=== PATIENT | male | born 1995 ===

== ENCOUNTER 2017-11-12 15:11 | Emergency (ER) | payer OTHER ==
[~2017-11-12] VITALS: Ht 180.3 cm; Wt 90.7 kg
[2017-11-12] MEDS ORDERED: MORPHINE 4 MG/ML SDV IVP ONE (15:20)
[2017-11-12] MEDS ORDERED: ONDANSETRON 4 MG/2 ML VIAL IVP ONE (15:20)
--- NOTE | 2017-11-12 15:26 | ER Report ---
History and Physical Time Seen By MD: 15:19 Hx. of Stated Complaint: PT HIT A TREE WHILE SNOWBOARDING TODAY. NO LOC. DENIES NECK OR BACK PAIN. HPI/ROS CHIEF COMPLAINT: r shoulder injury HISTORY OF PRESENT ILLNESS: [place] and the back of his snowboard clipped a small tree and the pt fell onto his r shoulder onto the ground. no helmet. did not hit his head. States wait of his body went onto his shoulder. + tingling down right arm to mid of his palm. pt has full range of motion of his hands. Pt denies neck pain. no chest or abd pain. no headaChe. Pt last ate at noon REVIEW OF SYSTEMS: Respiratory: No cough, no dyspnea. Cardiovascular: No chest pain, no palpitations. Gastrointestinal: No vomiting, no abdominal pain. Musculoskeletal: No back pain. + right shoulder pain Neuro: + numbness Allergies: Coded Allergies: No Known Drug Allergies (Unverified , 11/12/17) Home Meds No Active Prescriptions or Reported Meds Past Medical/Surgical History Pmhx: neg Pshx: knee surgery, TA Hx Smoking: No Hx Alcohol Use: Yes Constitutional Vital Sign - Last 24 Hours 11/12/17 15:16 Temp 99.6 Pulse 88 Resp 18 B/P (MAP) 149/105 Pulse Ox 94 Physical Exam General Appearance: The patient is alert, has no immediate need for airway protection and no signs of toxicity. Eyes: Pupils equal and round no pallor or injection, EOMI ENT: no pharyngeal erythema or exudates, Mucous membranes are moist, TM are nl b/l, neg hemotypmanums Respiratory: There are no retractions, lungs are clear to auscultation. Cardiovascular: Regular rate and rhythm. pulses are equal and symmetrical Gastrointestinal: Abdomen is soft and non tender, no masses, bowel sounds normal, no guarding, no rigidity or rebound Neurological: Cranial nerves II-XII grossly intact Skin: Warm and dry, no rashes. Musculoskeletal: Neck is supple non tender, no vertebral tenderness Extremities are nontender, nonswollen and have full range of motion with acception of right upper extremity which has equal grasps, pronation and supination is intact at the elbow; pt is unable to abduct right shoulder secondary to pain. + deformity at the glenoid fossa DIFFERENTIAL DIAGNOSIS: After history and physical exam differential diagnosis was considered for clavicle fx, humeral fx, dislocation Medical Decision Making EKG/Imaging Imaging + dislocation of r anterior shoulder Post reduction film is stable. ED Course/Re-evaluation Clinical Indication for ER IV: IV Access ED Course 11/12/2017 3:49:37 pm Pt with dislocated shoulder. PT would like to be "put out" before placing shoulder back in place. Pt signed consent. Will place on monitors. 11/12/2017 4:15:10 pm time out prior to procedure. Propofol 200mg given in total. Using traction counter traction r shoulder was placed back on first attempt. Pt placed in shoulder immobilizer. Repeat xray shows shoulder in good position. 11/12/2017 4:22:26 pm Pt feeling much better. REfused pain medication. Pt is going to see orthopedics closer to his home. Pts numbness has resolved with reduction of shoulder. Decision to Disposition Date: Nov 12, 2017 Decision to Disposition Time: 16:16 Depart Departure Latest Vital Signs Vital Signs Date Time Temp Pulse Resp B/P (MAP) Pulse Ox O2 Delivery O2 Flow Rate FiO2 11/12/17 15:16 99.6 88 18 149/105 94 Impression: Primary Impression: Dislocation, shoulder, anterior Condition: Improved Disposition: HOME OR SELF-CARE Referrals: [facility] 2 Days New Scripts No Active Prescriptions or Reported Meds Patient Instructions: Shoulder Dislocation (GEN) Additional Instructions: You dislocated your shoulder. We did reduce your shoulder and placed you in an immobilizer. Call Orthopedics tomorrow to arrange follow up for further evaluation of your shoulder for possible ligament injury. Motrin/tylenol as needed for pain. Problem Qualifiers Primary Impression: Dislocation, shoulder, anterior Encounter type: initial encounter Laterality: right Qualified Codes: S43.014A - Anterior dislocation of right humerus, initial encounter CINDI DICKERSON DO Nov 12, 2017 15:26
[2017-11-12] MEDS ORDERED: PROPOFOL EMUL 10MG/ML 20 ML VL IVP ONE (15:45)
[2017-11-12] MEDS ORDERED: NS(*) 0.9% 500 ML BAG 500 ML IV ONE (15:50)
--- NOTE | 2017-11-12 15:51 | RADIOLOGY IMAGING REPORT ---
FACILITY: [facility] [place] PATIENT NAME: Bridget Vega : 1995 MR: [id number] V: [id number] EXAM DATE: ORDERING PHYSICIAN: CINDI DICKERSON TECHNOLOGIST: Location: [facility] [place] Patient: Bridget Vega : 1995 Visit/Account:[id number] Date of Sevice: 11/12/2017 INDICATION: snowboarding accident. Evaluate for dislocation. Trauma. DATE: 11/12/2017 3:45 PM. TECHNIQUE: SHOULDER MIN 2 VIEWS RIGHT COMPARISON: None FINDINGS: The humeral head is dislocated anteroinferiorly. There is no conspicuous fracture. IMPRESSION: Anteroinferior dislocation of the humeral head. Report Dictated By: Brady Nugent MD at 11/12/2017 3:45 PM Report E-Signed By: Brady Nugent MD at 11/12/2017 3:47 PM [id number]:[email or web address]
[2017-11-12] MEDS ORDERED: PROPOFOL EMUL(*) 10MG/ML 20 ML 0 ML ONE (15:57)
[2017-11-12 16:10] VITALS: BP 111/97
[2017-11-12] MEDS ORDERED: NS(*) 0.9% 1000 ML BAG 1,000 ML IV ONE (16:25)
--- NOTE | 2017-11-12 16:53 | RADIOLOGY IMAGING REPORT ---
FACILITY: [facility] [place] PATIENT NAME: Bridget Vega : 1995 MR: [id number] V: [id number] EXAM DATE: ORDERING PHYSICIAN: CINDI DICKERSON TECHNOLOGIST: Location: [facility] [place] Patient: Bridget Vega : 1995 Visit/Account:[id number] Date of Sevice: 11/12/2017 EXAMINATION: Right shoulder 1 view. HISTORY: Post reduction COMPARISON: Prior study of earlier today FINDINGS: There has been reduction of the prior anterior right glenohumeral dislocation. Normal alignment on th is single postreduction film, without evidence of fracture. IMPRESSION: Normal alignment at the right glenohumeral joint following closed reduction of an anteri or right glenohumeral dislocation. Report Dictated By: Magan Luna MD at 11/12/2017 4:44 PM Report E-Signed By: Magan Luna MD at 11/12/2017 4:49 PM WSN:[id number]
== END 2017-11-12 16:30 | disposition home or self-care (01) ==
LOC: ER 15:15
DX: S43.014A Anterior dislocation of right humerus, initial encounter (principal); V00.311A Fall from snowboard, initial encounter; Y93.23 Activity, snow (alpine) (downhill) skiing, snowboarding, sledding, tobogganing and snow tubing
CPT/HCPCS: 23650; 73030; 96361; 96374; 96375; 99152; 99285; J2270; J2405; J2704; J7030; L3982